=== PATIENT | female | born 1980 | race Two or more races ===

== ENCOUNTER 2016-09-11 15:02 | Emergency (ER) | payer MEDICAID ==
[2016-09-11] MEDS ORDERED: oxyCOD/ACETAMIN 5 MG/325 MG TABLET PO STA (15:50)
[2016-09-11] MEDS ORDERED: oxyCOD/ACETAMIN 5 MG/325 MG TABLET PO ONE (15:53)
== END 2016-09-11 16:49 | disposition home or self-care (01) ==
DX: S20.212A Contusion of left front wall of thorax, initial encounter (principal); W01.0XXA Fall on same level from slipping, tripping and stumbling without subsequent striking against object, initial encounter; R03.0 Elevated blood-pressure reading, without diagnosis of hypertension; R56.9 Unspecified convulsions; Z87.891 Personal history of nicotine dependence
CPT/HCPCS: 71101; 99283; A9270

== ENCOUNTER 2016-10-02 11:29 | Emergency (ER) | payer MEDICAID ==
[2016-10-02] MEDS ORDERED: KETOROLAC 60 MG/2 ML VIAL IM STA (11:41)
[2016-10-02] MEDS ORDERED: oxyCODONE 5 MG TABLET PO STA ×2 (11:41→12:15)
[2016-10-02] MEDS ORDERED: TETANUS/DIPHTHERIA/PERTUSSIS 0.5 ML SYRINGE IM ONE ×2 (11:42→11:45)
[2016-10-02] MEDS ORDERED: KETOROLAC 30 MG/ML VIAL ONE (11:46)
[2016-10-02] MEDS ORDERED: KETOROLAC 60 MG/2 ML VIAL IVP STA (11:46)
[2016-10-02] MEDS ORDERED: HYDROmorphone 1 MG/ML SYRINGE ONE (11:46)
[2016-10-02] MEDS ORDERED: HYDROmorphone 1 MG/ML SYRINGE IVP STA (11:46)
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
[2016-10-02] MEDS ORDERED: oxyCODONE 5 MG TABLET ONE (12:19)
[2016-10-02 12:31] VITALS: BP 132/84
== END 2016-10-02 12:45 | disposition short-term general hospital (02) ==
LOC: ED 11:29
DX: T22.311A Burn of third degree of right forearm, initial encounter (principal); X15.0XXA Contact with hot stove (kitchen), initial encounter; Y93.G3 Activity, cooking and baking; G40.909 Epilepsy, unspecified, not intractable, without status epilepticus; Z87.891 Personal history of nicotine dependence; Z97.5 Presence of (intrauterine) contraceptive device; Z23 Encounter for immunization
CPT/HCPCS: 90471; 90715; 96374; 96375; 99283; 99284; A9270; J1170

== ENCOUNTER 2016-12-22 15:25 | Outpatient (CLI) | payer MEDICAID | END 2016-12-22 15:26 | disposition critical access hospital (66) | LOC: EMS 15:25 | PROVIDERS: ATTEND Surgery | DX: R56.9 Unspecified convulsions (principal) | CPT/HCPCS: A0425; A0429 ==

== ENCOUNTER 2016-12-22 15:46 | Emergency (ER) | payer MEDICAID ==
[2016-12-22] MEDS ORDERED: SODIUM CHLORIDE 0.9% 1,000 ML IV ONE (15:50)
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
[2016-12-22] MEDS ORDERED: LORazepam 2 MG/ML SYRINGE IVP STA (16:25)
[2016-12-22 16:26] LABS: BASOPHILS # (AUTO) 0.1 10^3/uL (0.0-0.1); BASOPHILS % (AUTO) 0.6 %; EOSINOPHILS # (AUTO) 0.1 10^3/uL (0.0-0.7); EOSINOPHILS % (AUTO) 1.4 %; HCT - HEMATOCRIT 37.7 % (37.0-47.0); LYMPHOCYTES # (AUTO) 1.7 10^3/uL (1.5-3.5); LYMPHOCYTES % (AUTO) 19.8 %; MEAN CORPUSCULAR HEMOGLOBIN 29.9 pg (27.0-31.0); MEAN CORPUSCULAR HGB CONC 34.5 g/dL (32.0-36.0); MEAN CORPUSCULAR VOLUME 86.8 fL (81.0-99.0); MONOCYTES # (AUTO) 0.5 10^3/uL (0.0-1.0); MONOCYTES % (AUTO) 5.9 %; NEUTROPHILS # (AUTO) 6.2 10^3/uL (1.5-6.6); NEUTROPHILS % (AUTO) 72.3 %; NUCLEATED RED BLOOD CELLS AUTO 0.1 /100WBC; RED BLOOD COUNT 4.35 10^6/uL (4.20-5.40); RED CELL DISTRIBUTION WIDTH 12.8 % (12.0-15.0); UNCORRECTED WHITE BLOOD COUNT 8.6 x10^3/uL; WHITE BLOOD COUNT 8.6 x10^3/uL (4.8-10.8)
[2016-12-22 16:34] LABS: CREATININE 0.6 mg/dL (0.4-1.0); POTASSIUM 3.4 mmol/L (3.5-5.0)
[2016-12-22] MEDS ORDERED: LORazepam 2 MG/ML SYRINGE ONE (16:44)
[2016-12-22 17:32] VITALS: BP 112/76
== END 2016-12-22 17:29 | disposition home or self-care (01) ==
LOC: EDUNIT# → EDBD → ED 15:46
DX: G40.909 Epilepsy, unspecified, not intractable, without status epilepticus (principal); Z87.891 Personal history of nicotine dependence
CPT/HCPCS: 36415; 80048; 85025; 99283; J2060

== ENCOUNTER 2017-04-09 11:49 | Outpatient (CLI) | payer MEDICAID | END 2017-04-09 11:50 | disposition EMS.NT | LOC: EMS 11:49 | PROVIDERS: ATTEND Surgery | DX: G40.909 Epilepsy, unspecified, not intractable, without status epilepticus (principal) ==

== ENCOUNTER 2017-11-01 17:24 | Emergency (ER) | payer MEDICAID ==
[2017-11-01] MEDS ORDERED: ONDANSETRON ODT 4 MG TABLET TL STA (17:54)
[2017-11-01] MEDS ORDERED: KETOROLAC 60 MG/2 ML VIAL IM STA (17:54)
[2017-11-01] MEDS ORDERED: HYDROmorphone 2 MG/ML VIAL IM STA ×2 (17:54→18:48)
--- NOTE | 2017-11-01 17:58 | ED Physician Documentation ---
PD HPI LOWER EXT INJURY - Stated complaint Stated Complaint: L LEG PX - Chief complaint Chief Complaint: Ext Problem - History obtained from History obtained from: Patient - History of Present Illness PD HPI LOW EXT INJURY LOCATION: Other (37-year-old woman who for the last 3 days without specific trauma has had severe and worsening sharp radiating pain from the left lateral hip down to the knee. She was diagnosed with sciatica and advised to start stretches and muscle relaxer but that really has not been helpful. There is no weakness, numbness, or tingling or saddle anesthesia or fevers. 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, Other HEENT: Tonsil/Adenoidectomy - Present Medications Home Medications: Ambulatory Orders Medication Instructions Recorded Confirmed OXcarbazepine [Oxcarbazepine] 900 mg PO BID 09/11/16 12/22/16 Zonisamide 100 mg PO DAILY 09/11/16 12/22/16 Zonisamide 300 mg PO DAILY PM 09/11/16 12/22/16 Gabapentin 300 mg PO TID 12/22/16 12/22/16 Gabapentin 2 tab PO TID #60 capsule 11/01/17 Oxycodone HCl/Acetaminophen 1 - 2 tab PO Q4H PRN #15 tablet 11/01/17 [Percocet 5-325 mg Tablet] predniSONE [Deltasone] 20 mg PO [id number] #21 tab 11/01/17 - Allergies Allergies/Adverse Reactions: Allergies Allergy/AdvReac Type Severity Reaction Status Date / Time levetiracetam [From [facility]] AdvReac severe Verified 12/22/16 15:53 drowiness - Social History Does the pt smoke?: No Smoking Status: Former smoker Does the pt drink ETOH?: No Does the pt have substance abuse?: No - Immunizations Immunizations are current?: Yes PD ED PE NORMAL - Vitals Vital signs reviewed: Yes - General General: Alert and oriented X 3, Other (She is tearful and uncomfortable) - Abdomen Abdomen: Soft, Non tender - Back Back: No spinal TTP, Other (Tender in the left sciatic notch) - Extremities Extremities: Other (She has slightly diminished sensation on the lateral calf but equal patellar and Achilles reflexes. The remainder of her sensation throughout the legs is unremarkable and she is unable to tolerate a straight leg raise.) - Neuro Neuro: Alert and oriented X 3, Normal speech Results - Vitals Vitals: Vital Signs - 24 hr 11/01/17 17:41 Temperature 36.8 C Heart Rate 113 H Respiratory 20 Rate Blood Pressure 144/103 H O2 Saturation 97 Oxygen O2 Source Room air PD MEDICAL DECISION MAKING - ED course ED course: 37-year-old woman with history of sciatica presents with an exacerbation of same and improved stepwise with medications here. - Sepsis Event Vital Signs: Vital Signs - 24 hr 11/01/17 17:41 Temperature 36.8 C Heart Rate 113 H Respiratory 20 Rate Blood Pressure 144/103 H O2 Saturation 97 Oxygen O2 Source Room air Departure - Departure Disposition: Home, Self Care Clinical Impression: Left sided sciatica Condition: Good Record reviewed to determine appropriate education?: Yes Instructions: ED Sciatica Prescriptions: Gabapentin 2 tab PO TID #60 capsule Oxycodone HCl/Acetaminophen [Percocet 5-325 mg Tablet] 1 - 2 tab PO Q4H PRN #15 tablet PRN Reason: Pain predniSONE [Deltasone] 20 mg PO [id number] #21 tab Comments: Call your doctor to arrange a follow-up appointment, make the next available appointment. In the interim, return anytime if worse or if new symptoms develop. Your blood pressure was elevated today on check into the emergency department. This does not mean that you have hypertension, it is a common phenomenon to come to the emergency department and have elevated blood pressure. I recommend that you see your primary care physician within the week to have it rechecked when you are feeling better. Do not drink or drive while taking narcotic pain medication. Note that many narcotic pain relievers also contain Tylenol/acetaminophen. Please ensure that your total dose of acetaminophen from all sources does not exceed 3 g (3000 mg) per day. You may get constipated while on this medication. Take a stool softener such as Colace twice a day while you are on it. Also add an [id number]-[id number] laxative such as senna or MiraLAX on any day that you do not have a bowel movement. If you received a narcotic pain medication or sedative while in the emergency department, do not drive for the next 24 hours.
[2017-11-01 18:54] VITALS: BP 140/84
== END 2017-11-01 19:06 | disposition home or self-care (01) ==
LOC: ED 17:24
DX: M54.32 Sciatica, left side (principal); R03.0 Elevated blood-pressure reading, without diagnosis of hypertension; Z87.891 Personal history of nicotine dependence
CPT/HCPCS: 96372; 99282; 99283; J1170; Q0162

== ENCOUNTER 2017-11-12 16:27 | Outpatient (CLI) | payer MEDICAID ==
[2017-11-12 18:52] LABS: BILIRUBIN,URINE NEGATIVE (NEGATIVE); GLUCOSE, URINE (UA) NEGATIVE (NEGATIVE); KETONES,URINE (UA) NEGATIVE (NEGATIVE); LEUKOCYTE ESTERASE, URINE NEGATIVE (NEGATIVE); NITRITE,URINE NEGATIVE (NEGATIVE); OCCULT BLOOD,URINE TRACE-LYSE (NEGATIVE); PH,URINE 7.5 PH (5.0-7.5); PROTEIN,URINE NEGATIVE (NEGATIVE); UROBILINOGEN,URINE 0.2 (NORMAL) E.U./dL (NORMAL)
[2017-11-12 18:54] LABS: CLARITY,URINE CLOUDY (CLEAR)
[2017-11-12 19:11] LABS: RBC,URINE 0-5 /HPF (0-5); WBC CLUMPS,URINE PRESENT
[2017-11-12 19:12] LABS: AMORPHOUS SEDIMENT,UR Moderate /LPF; BACTERIA,URINE Few /HPF (None Seen); SQUAMOUS EPITHELIAL CELL,UR FEW Squamous (<= Few)
== END 2017-11-12 16:28 | disposition home or self-care (01) ==
LOC: LAB.R 16:27
PROVIDERS: ATTEND Physician Assistant Medical
DX: R30.0 Dysuria (principal)
CPT/HCPCS: 81001; 81003; 87086

== ENCOUNTER 2018-03-19 11:58 | Outpatient (CLI) | payer MEDICAID ==
--- NOTE | 2018-03-19 14:53 | XRAY Report ---
Reason: lbp w/sciatica Procedure Date: 03/19/2018 Accession Number: [id number] / [id number] Procedure: XRN - Lumbar Spine 2 View CPT Code: FULL RESULT: EXAM: LUMBOSACRAL SPINE RADIOGRAPHY EXAM DATE: 03/19/2018 12:22 PM. CLINICAL HISTORY: Low back pain with sciatica. COMPARISONS: None. TECHNIQUE: 3 views. FINDINGS: Alignment: Normal. No spondylolisthesis or scoliosis. Bones: Five [id number]-vgf-[id number] lumbar vertebral bodies are present. No fractures or bone lesions. Disks: Normal. Disk heights are maintained. Facets: No degenerative changes. Sacroiliac Joints: Unremarkable. Soft Tissues: Cholecystectomy clips. Unremarkable bowel gas pattern. IMPRESSION: Normal lumbar spine radiography. RADIA
== END 2018-03-19 11:59 | disposition home or self-care (01) ==
LOC: DI.N 11:58
PROVIDERS: ATTEND Physician Assistant Medical
DX: M54.40 Lumbago with sciatica, unspecified side (principal)
CPT/HCPCS: 72100

== ENCOUNTER 2018-05-19 18:04 | Emergency (ER) | payer MEDICAID ==
[2018-05-19] MEDS ORDERED: predniSONE 20 MG TABLET PO STA (18:22)
[2018-05-19] MEDS ORDERED: HYDROmorphone 1 MG/ML CARPUJECT IM STA ×2 (18:22→19:10)
[2018-05-19] MEDS ORDERED: KETOROLAC 60 MG/2 ML VIAL IM STA (18:22)
--- NOTE | 2018-05-19 18:24 | ED Physician Documentation ---
PD HPI BACK PAIN - Stated complaint Stated Complaint: BACK PX - Chief complaint Chief Complaint: Back Pain - History obtained from History obtained from: Patient - History of Present Illness Timing - onset: Other (38-year-old woman that has had ongoing back pain for the last 8 months or so. There was no injury. She was seen here and treated with prednisone, gabapentin, Percocet in October which was helpful. Since then she has had negative x-rays but had an MRI per her just 10 days ago which showed a herniated disc at L5/S1 to the left. She has a pending referral to a nuclear weapons specialist. In the meantime her pain is unbearable, its in the low back and radiates to the left buttock and leg with numbness in the left leg especially on the big toe side of her foot. There is no saddle anesthesia or fever. No incontinence. 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, Other HEENT: Tonsil/Adenoidectomy - Present Medications Home Medications: Ambulatory Orders Medication Instructions Recorded Confirmed OXcarbazepine [Oxcarbazepine] 900 mg PO BID 09/11/16 12/22/16 Zonisamide 100 mg PO DAILY 09/11/16 12/22/16 Zonisamide 300 mg PO DAILY PM 09/11/16 12/22/16 Gabapentin 300 mg PO TID 12/22/16 12/22/16 Gabapentin 2 tab PO TID #60 capsule 11/01/17 Oxycodone HCl/Acetaminophen 1 - 2 tab PO Q4H PRN #15 tablet 11/01/17 [Percocet 5-325 mg Tablet] predniSONE [Deltasone] 20 mg PO [id number] #21 tab 11/01/17 Oxycodone HCl/Acetaminophen 1 - 2 each PO Q6H PRN #14 tablet 05/19/18 [Percocet 5-325 mg Tablet] predniSONE [Deltasone] 20 mg PO [id number] #21 tab 05/19/18 - Allergies Allergies/Adverse Reactions: Allergies Allergy/AdvReac Type Severity Reaction Status Date / Time hydrocodone Allergy Emesis Verified 05/19/18 18:12 levetiracetam [From Keppra] AdvReac severe Verified 05/19/18 18:12 drowiness - Social History Does the pt smoke?: No Smoking Status: Never smoker Does the pt drink ETOH?: No Does the pt have substance abuse?: No - Immunizations Immunizations are current?: Yes PD ED PE NORMAL - Vitals Vital signs reviewed: Yes - General General: Alert and oriented X 3, Other (tearful) - Cardiac Cardiac: RRR, No murmur - Respiratory Respiratory: No respiratory distress, Clear bilaterally - Abdomen Abdomen: Non tender - Back Back: No spinal TTP - Extremities Extremities: Other (Diminished sensation in the left leg that is focused over the medial calf. She has equal Achilles and patellar reflexes. Normal strength in flexion extension at the ankles and flexion extension of the knees bilaterally.) - Neuro Neuro: Alert and oriented X 3, Normal speech - Psych Psych: Normal mood, Normal affect Results - Vitals Vitals: Vital Signs - 24 hr 05/19/18 05/19/18 05/19/18 18:10 18:43 18:59 Temperature 36.9 C Heart Rate 104 H 98 86 Respiratory 18 20 16 Rate Blood Pressure 142/100 H 128/71 127/81 H O2 Saturation 99 99 96 05/19/18 05/19/18 19:41 20:21 Temperature 36.7 C Heart Rate 81 81 Respiratory 18 16 Rate Blood Pressure 126/69 125/79 O2 Saturation 100 100 Oxygen O2 Source Room air PD MEDICAL DECISION MAKING - ED course ED course: This patient has seemingly uncomplicated musculoskeletal back pain. The patient has no "red flags." Specifically denies IV drug use, fevers, incontinence, saddle anesthesia. Spinal epidural abscess was considered, given that the patient has no fever, is not diabetic, has no spinal tenderness, does not use IV drugs, and has no bilateral neurologic symptoms, the diagnosis of spinal epidural abscess is considered exceedingly unlikely. The [place] prescription monitoring program was queried with regard to this patient. No concerning findings were found. Departure - Departure Disposition: 01 Home, Self Care Clinical Impression: Left sided sciatica Condition: Good Record reviewed to determine appropriate education?: Yes Instructions: ED Sciatica Prescriptions: Oxycodone HCl/Acetaminophen [Percocet 5-325 mg Tablet] 1 - 2 each PO Q6H PRN #14 tablet PRN Reason: pain predniSONE [Deltasone] 20 mg PO [id number] #21 tab Comments: Call your doctor to arrange a follow-up appointment, make the next available appointment. In the interim, return anytime if worse or if new symptoms develop. Do not drink or drive while taking narcotic pain medication. Note that many narcotic pain relievers also contain Tylenol/acetaminophen. Please ensure that your total dose of acetaminophen from all sources does not exceed 3 g (3000 mg) per day. You may get constipated while on this medication. Take a stool softener such as Colace twice a day while you are on it. Also add an vxif-jmq-kfvmiac laxative such as senna or MiraLAX on any day that you do not have a bowel movement. If you received a narcotic pain medication or sedative while in the emergency department, do not drive for the next 24 hours.
[2018-05-19] MEDS ORDERED: LORazepam 2 MG/ML VIAL IM STA (19:48)
[2018-05-19] MEDS ORDERED: ONDANSETRON ODT 4 MG TABLET TL STA (20:29)
[2018-05-19] MEDS ORDERED: oxyCODONE/ACET 5/325 Prepack 4 PO STA (20:42)
[2018-05-19 21:02] VITALS: BP 110/69
== END 2018-05-19 21:02 | disposition home or self-care (01) ==
LOC: ED 18:04
DX: M54.32 Sciatica, left side (principal); M51.27 Other intervertebral disc displacement, lumbosacral region
CPT/HCPCS: 96372; 99283; J1170; J2060; J7512; Q0162

== ENCOUNTER 2018-07-18 17:53 | Emergency (ER) | payer MEDICAID ==
[2018-07-18] MEDS ORDERED: oxyCODONE 5 MG TABLET PO STA (18:08)
[2018-07-18 18:10] VITALS: BP 146/86
--- NOTE | 2018-07-18 18:10 | ED Physician Documentation ---
PD HPI BACK PAIN - Stated complaint Stated Complaint: BACK PX - Chief complaint Chief Complaint: Back Pain - History obtained from History obtained from: Patient - History of Present Illness Timing - onset: Other (This is a 38-year-old woman with long-standing back pain due to a known disc herniation. She walks a lot a few days ago and she saw the physiatry us today in between those 2 things are back pain is worse than normal. 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, Other HEENT: Tonsil/Adenoidectomy - Present Medications Home Medications: Ambulatory Orders Medication Instructions Recorded Confirmed OXcarbazepine [Oxcarbazepine] 900 mg PO BID 09/11/16 12/22/16 Zonisamide 100 mg PO DAILY 09/11/16 12/22/16 Zonisamide 300 mg PO DAILY PM 09/11/16 12/22/16 Gabapentin 300 mg PO TID 12/22/16 12/22/16 Gabapentin 2 tab PO TID #60 capsule 11/01/17 Oxycodone HCl/Acetaminophen 1 - 2 tab PO Q4H PRN #15 tablet 11/01/17 [Percocet 5-325 mg Tablet] predniSONE [Deltasone] 20 mg PO [id number] #21 tab 11/01/17 Oxycodone HCl/Acetaminophen 1 - 2 each PO Q6H PRN #14 tablet 05/19/18 [Percocet 5-325 mg Tablet] predniSONE [Deltasone] 20 mg PO [id number] #21 tab 05/19/18 Oxycodone HCl/Acetaminophen 1 - 2 each PO Q6H PRN #14 tablet 07/18/18 [Percocet 5-325 mg Tablet] - Allergies Allergies/Adverse Reactions: Allergies Allergy/AdvReac Type Severity Reaction Status Date / Time hydrocodone Allergy Emesis Verified 07/18/18 18:00 levetiracetam [From Keppra] AdvReac severe Verified 07/18/18 18:00 drowiness - Social History Does the pt smoke?: No Smoking Status: Never smoker Does the pt drink ETOH?: No Does the pt have substance abuse?: No - Immunizations Immunizations are current?: Yes PD ED PE NORMAL - Vitals Vital signs reviewed: Yes - General General: Alert and oriented X 3, Other (Appears uncomfortable) - Abdomen Abdomen: Soft, Non tender - Back Back: No spinal TTP - Extremities Extremities: Other (Mildly diminished sensation in the left L4 distribution combined with decreased but not absent reflex in the left patella compared to the right.) - Neuro Neuro: Alert and oriented X 3, Normal speech Results - Vitals Vitals: Vital Signs - 24 hr 07/18/18 17:58 Temperature 37.0 C Heart Rate 99 Respiratory 18 Rate Blood Pressure 146/86 H O2 Saturation 100 Oxygen O2 Source Room air Departure - Departure Disposition: Home, Self Care Clinical Impression: Left sided sciatica Condition: Good Record reviewed to determine appropriate education?: Yes Instructions: ED Sciatica Prescriptions: Oxycodone HCl/Acetaminophen [Percocet 5-325 mg Tablet] 1 - 2 each PO Q6H PRN #14 tablet PRN Reason: pain Comments: The policy of this emergency department is to not give more than 3 prescriptions for narcotics or other controlled substances in any 1 year. You have already surpassed this benchmark and we cannot prescribe narcotics for you. I encourage you to follow up with your primary care physician or to establish care with a primary care physician for ongoing pain management. You are always welcome to seek emergency care here for this or new issues but there will likely be limitations in the prescription of narcotic pain medication. Your blood pressure was elevated today on check into the emergency department. This does not mean that you have hypertension, it is a common phenomenon to come to the emergency department and have elevated blood pressure. I recommend that you see your primary care physician within the week to have it rechecked when you are feeling better.
== END 2018-07-18 18:17 | disposition home or self-care (01) ==
LOC: ED 17:53
DX: M54.32 Sciatica, left side (principal)
CPT/HCPCS: 99283; A9270